=== PATIENT | female | born 1975 | race Caucasian/White ===

== ENCOUNTER → 2016-08-09 | Outpatient (CLI) | payer OTHER ==
--- NOTE | 2016-08-09 14:27 | US ---
EXAMINATION TYPE: US pelvic complete DATE OF EXAM: 08/09/2016 2:10 PM COMPARISON: NONE CLINICAL HISTORY: N92.0 Menorrhagia with reg cycle. PAtient c/o heavy menses x 2 years; TECHNIQUE: Transvaginal (TV) and Transabdominal (TA); transvaginal US performed to better see endome trium Date of LMP: 08/01/2016 EXAM MEASUREMENTS: Uterus: 10.1 x 7.1 x 5.7 cm Endometrial Stripe: 2.2 cm Right Ovary: 4.1 x 3.3 x 2.8 cm Left Ovary: 3.5 x 26 x 1.4 cm 1. Uterus: Anteverted; Multiple Nabothian cysts in CX with largest = 0.7 x 0.7 x 0.6cm. 2. Endometrium: thickened for Day 9LMP and borders are not well defined 3. Right Ovary: multiple follicles with largest = 2.5 x 2.6 x 2.3cm; color flow is seen 4. Left Ovary: multiple follicles with largest = 0.8 x 0.8 x 0.6cm 5. Bilateral Adnexa: wnl 6. Posterior cul-de-sac: wnl IMPRESSION: 1. NABOTHIAN CYSTS. 2. THICKENED ENDOMETRIUM.
[2016-08-09 15:11] LABS: CH 31.3; CHCM 32.4; HCT 38.9 % (34.0-46.0); HGB 12.9 gm/dL (11.4-16.0); MCH 32.1 pg (25.0-35.0); MCHC 33.2 g/dL (31.0-37.0); Mean Platelet Volume 6.6; RBC 4.01 m/uL (3.80-5.40); RDW 13.3 % (11.5-15.5); WBC 8.4 k/uL (3.8-10.6)
[2016-08-09 15:29] LABS: Follicle Stimulating Hormone 3.2 mIU/mL; Prolactin 12.8 ng/mL (3.0-18.6)
== END | disposition home or self-care (01) ==
LOC: RADUSWWP 13:41
PROVIDERS: ATTEND Obstetrics & Gynecology
DX: N88.8 Other specified noninflammatory disorders of cervix uteri (principal); R93.8 Abnormal findings on diagnostic imaging of other specified body structures
CPT/HCPCS: 36415; 76830; 76856; 83001; 83002; 84146; 84443; 85027

== ENCOUNTER 2016-08-31 11:08 | Day surgery (SDC) | payer OTHER ==
[2016-08-26 11:57] VITALS: BMI 28.1
--- NOTE | 2016-08-31 07:33 | P.HPOB ---
History of Present Illness H&P Date: 08/31/16 Chief Complaint: Menorrhagia with thickened lining Patient is a 41-year-old female with grossly thickened endometrium. Ultrasound reveals 2.2 cm. The last 2 year she has had a complaint of very heavy vaginal bleeding first day is usually worst and she goes through pad every hour. She passes clots that are about the size of golf balls were slightly larger. This usually occurs during the second third day of her cycle is very painful distressing and she is wanting some type of correction for the problem. However , due to her age and grossly thickened lining I would prefer to have a diagnosis prior to proceeding with some type of treatment therefore we will plan to do a D&C hysteroscopy today and after follow-up decide what long-term treatment best for her. Risks/benefits/alternatives to this procedure were discussed with the patient in detail and all questions are answered for her prior to proceeding to the operating room. On physical exam vital signs are stable and afebrile. Heart regular, lungs clear, extremities without pain. Abdomen soft nontender positive bowel sounds are noted. Pelvic exam is otherwise unremarkable. Assessment menorrhagia. Plan D&C hysteroscopy. Past Medical History Past Medical History: No Reported History History of Any Multi-Drug Resistant Organisms: None Reported Past Surgical History: Appendectomy, Tubal Ligation Past Anesthesia/Blood Transfusion Reactions: No Reported Reaction Past Psychological History: Bipolar, Depression Smoking Status: Former smoker Past Alcohol Use History: Rare Additional Past Alcohol Use History / Comment(s): smoked on and off from age 12 to 2016 6-7 cig/day Past Drug Use History: None Reported - Past Family History Mother Family Medical History: No Reported History Medications and Allergies Home Medications Medication Instructions Recorded Confirmed Type No Known Home Medications [No 08/26/16 08/26/16 History Known Home Medications] Allergies Allergy/AdvReac Type Severity Reaction Status Date / Time tramadol Allergy Mild FLUSHING Verified 08/26/16 11:44 latex Allergy Rash- Itchy Verified 08/26/16 11:44 Exam Osteopathic Statement: *. No significant issues noted on an osteopathic structural exam other than those noted in the History and Physical/Consult.
[~2016-08-31 11:08] MED LIST: DEXAMETHASONE SOD PHOSPHATE 10 MG/ML 1 ML VIAL IV ONE; LACTATED RINGERS 1,000 ML IV SCH; LIDOCAINE 1% 20 ML VIAL (10MG/ML) FOR IV START INTRADERMA PRN; MIDAZOLAM 2 MG/2 ML VIAL IV PRN; ONDANSETRON 4 MG/2 ML VIAL IVP ONE; Pre Op ABX Message 1 EACH MISC MISCELLANE ONE; SCOPOLAMINE 1.5MG/72HR PATCH TRANSDERM ONE
[2016-08-31] MEDS ORDERED: PROPOFOL 10 MG/ML 20 ML VIAL IV ONE (12:33)
[2016-08-31] MEDS ORDERED: MIDAZOLAM 2 MG/2 ML VIAL ONE (12:33)
[2016-08-31] MEDS ORDERED: LIDOCAINE 1% INJ 10MG/ML (20 ML MDV) ONE (12:33)
[2016-08-31] MEDS ORDERED: fentaNYL (PF) 50 MCG/ML 2 ML AMP ONE (12:33)
--- NOTE | 2016-08-31 13:01 | P.OP ---
Date of Procedure: 08/31/16 Preoperative Diagnosis: menorrhagia Postoperative Diagnosis: same Procedure(s) Performed: d&c with hysteroscopy Implants: Anesthesia: ISACA Surgeon: Dino Martinez Estimated Blood Loss (ml): 3 Pathology: other (uterine curretting) Condition: stable Disposition: same day Indications for Procedure: Operative Findings: tissue pathology pending Description of Procedure: Patient was taken to the operating suite where a general anesthetic was found be adequate. She was prepped and draped and placed in the dorsal lithotomy position. Initially a weighted speculum was inserted into the vagina and the uterus was sounded to 10 cm. Cervix then dilated camera was inserted. No gross pathology was noted therefore camera was removed and sharp curettings of the endometrium were obtained. All tissues collected placed on Telfa and sent to pathology. Once this was accomplished instruments were removed sponge, lap, needle counts were all correct 2. Patient then taken to recovery room in stable and satisfactory condition. Plan - Discharge Summary New Discharge Prescriptions: New Ibuprofen [Motrin] 600 mg PO Q6HR PRN #30 tab PRN Reason: Pain Discharge Medication List Ibuprofen [Motrin] 600 mg PO Q6HR PRN #30 tab 08/31/16 [Rx] Follow up Appointment(s)/Referral(s): Dino Martinez DO [Doctor of Osteopathic Medicine] - 2 Weeks Activity/Diet/Wound Care/Special Instructions: No heavy lifting, limit stairs and driving and pelvic rest for the next few days. If any high temperatures, heavy bleeding, or severe pain call my office Discharge Disposition: HOME SELF-CARE
[2016-08-31] MEDS: HYDROmorphone 1 MG/ML 1 ML SYRINGE IVP PRN ×2 (13:02→13:07)
[2016-08-31] MEDS ORDERED: KETOROLAC 30 MG/ML 1 ML VIAL IVP ONE (13:12)
[2016-08-31 13:14] VITALS: RESP 16; TEMP 97.8
[2016-08-31] MEDS ORDERED: LACTATED RINGERS 1,000 ML IV ONE (13:35)
[2016-08-31 14:06] VITALS: BP 134/80; PULSE 70
== END 2016-08-31 14:23 | disposition home or self-care (01) ==
LOC: OR 11:08
PROVIDERS: ATTEND Obstetrics & Gynecology
DX: N85.9 Noninflammatory disorder of uterus, unspecified (principal); N92.0 Excessive and frequent menstruation with regular cycle; Z91.040 Latex allergy status; Z88.5 Allergy status to narcotic agent; Z87.891 Personal history of nicotine dependence; Z98.51 Tubal ligation status; Z90.49 Acquired absence of other specified parts of digestive tract
CPT/HCPCS: 58558; 81025; 88305; J2250; J1100; J2405; J2001; J3010; J1885; J1170; J2704